=== PATIENT | male | born 1975 | race Caucasian/White ===

== ENCOUNTER 2017-02-01 19:40 | Emergency (ER) | payer OTHER ==
[~2017-02-01] VITALS: Ht 180.3 cm; Wt 97.5 kg
[~2017-02-01 19:40] MED LIST: AMBIEN 10 MG TA10 MG PO; CELEXA 10 MG TA10 M1; CIPROFLOXACIN500 M1 PO; DESYREL; DESYREL150 MG PO; DESYREL50 MG PO; DIFLUCAN150 MG PO; FLAGYL500 MG PO; FLOMAX PO; FLUCONAZOLE 10100 MG PO; FOLIC ACID1 MG PO; IBUPROFEN 600600 M1 PO; IBUPROFEN 800800 MG PO; KEFLEX500 MG PO; LEVOTHROID; LEVOTHROID175 MCG PO; LEVOTHYROXINE0.05 MG PO; NAPROSYN500 MG PO; NOHOMEMEDICATIONS; NORCO 5-325 TA1 EACH PO; NYSTATIN 1100000 U/M SW&SWALLOW; ORABASE11.9 GM MM; PERCOCET 5-3251 EACH PO; PREDNISONE50 MG PO; SYNTHROID175 MCG PO; TAMSULOSIN HCL0.4 MG PO; TIROSINT75 MCG PO; TRAZODONE 150150 M1 PO; VISTARIL 25 MG25 M1 PO; ZOFRAN4 MG PO
[2017-02-01] MEDS ORDERED: CLOTRIMAZOLE 1%15 G1 TOP (21:09)
== END 2017-02-01 21:57 | disposition home or self-care (01) ==
LOC: ER 19:40
DX: N64.4 Mastodynia (principal); N62 Hypertrophy of breast; B36.9 Superficial mycosis, unspecified; E03.9 Hypothyroidism, unspecified; F17.210 Nicotine dependence, cigarettes, uncomplicated; Z90.89 Acquired absence of other organs

== ENCOUNTER 2018-02-19 05:32 | Inpatient (IN) | payer OTHER ==
[~2018-02-19] VITALS: Ht 180.3 cm; Wt 105.2 kg
[~2018-02-19 05:32] MED LIST changes: +CLOTRIMAZOLE 1%15 G1 TOP
[2018-02-19 05:42] VITALS: BP 118/82
[2018-02-19] MEDS ORDERED: ANTIDEPRESSANT (05:46)
[2018-02-19 05:58] LABS: URINE BILIRUBIN NEGATIVE (Negative); URINE BLOOD 3+ (Negative); URINE CLARITY CLOUDY; URINE COLOR YELLOW; URINE GLUCOSE-RANDOM* NEGATIVE (Negative); URINE KETONES NEGATIVE (Negative); URINE LEUKOCYTES NEGATIVE (Negative); URINE NITRITE NEGATIVE (Negative); URINE PROTEIN (DIPSTICK) NEGATIVE (Negative); URINE SPECIFIC GRAVITY 1.025 (1.005-1.035); URINE UROBILINOGEN 0.2 E.U./dl (0.2-1.0)
[2018-02-19 06:00] LABS: ABSOLUTE NEUTROPHILS 6.3 thou/uL (1.4-8.2); BASOPHILS 0.9 % (0.0-2.0); EOSINOPHILS 3.1 % (0.0-3.0); HEMATOCRIT 45.7 % (42.0-52.0); LYMPHOCYTES 23.6 % (24.0-44.0); MCH 35.6 pg (26.0-34.0); MCV 101.6 fL (80.0-100.0); MONOCYTES 6.7 % (1.0-8.0); PLATELET COUNT 232 thou/uL (150-400); POLYS 65.7 % (36.0-66.0); RDW 12.8 % (10.5-14.5); WBC 9.5 thou/uL (4.0-11.0)
[2018-02-19 06:08] LABS: CALCIUM 8.2 mg/dL (8.5-10.1); CREATININE 1.3 mg/dL (0.7-1.3); POTASSIUM 3.6 mmol/L (3.5-5.1)
[2018-02-19 06:14] LABS: ALBUMIN 3.6 g/dL (3.4-5.0); DIRECT BILIRUBIN 0.1 mg/dL (<0.1-0.3); TOTAL BILIRUBIN 0.2 mg/dL (<0.1-1.0); TOTAL PROTEIN 6.9 g/dL (6.4-8.2)
[2018-02-19 06:16] LABS: BACTERIA 1-9 Few /HPF (None Seen); CASTS None Seen /LPF (None Seen); CRYSTALS None Seen /LPF (None Seen); MUCUS 0-3 Light strn/LPF (None Seen); SQUAMOUS None Seen /LPF (0-3); URINE RBC >20 Many /HPF (0-2); URINE WBC None Seen /HPF (0-5)
[2018-02-19 09:24] VITALS: BP 122/84
[2018-02-19 09:33] VITALS: BP 116/74
[2018-02-19 10:15] VITALS: BP 142/89
[2018-02-19 15:55] VITALS: BP 123/88
[2018-02-19 19:55] VITALS: BP 130/90
[2018-02-20 03:53] VITALS: BP 145/88
[2018-02-20 07:27] LABS: HEMATOCRIT 43.4 % (42.0-52.0); HEMOGLOBIN 14.8 gm/dL (14.0-18.0); MCH 35.1 pg (26.0-34.0); MCHC 34.2 g/dL (28.0-37.0); MCV 102.5 fL (80.0-100.0); RBC 4.23 mil/uL (4.50-6.00); RDW 12.9 % (10.5-14.5); WBC 8.4 thou/uL (4.0-11.0)
[2018-02-20 07:31] VITALS: BP 124/91
[2018-02-20 07:38] LABS: CALCIUM 7.7 mg/dL (8.5-10.1); CREATININE 1.9 mg/dL (0.7-1.3); POTASSIUM 3.8 mmol/L (3.5-5.1)
[2018-02-20] MEDS ORDERED: HYDROCODONE-AP1 EAC6 PO (08:46)
[2018-02-20] MEDS ORDERED: CEFUROXIME500 MG PO (08:46)
[2018-02-20] MEDS ORDERED: FLOMAX0.4 MG PO (08:52)
[2018-02-20 09:38] VITALS: BP 124/91
[2018-02-20 09:42] VITALS: BP 124/91
== END 2018-02-20 11:02 | disposition home or self-care (01) | DRG 693 ==
LOC: ER 05:32 → 4W 06:59 → EROBS 06:59 → 4W 09:34
PROVIDERS: Emergency Medicine; Hospitalist
DX: N20.2 Calculus of kidney with calculus of ureter (principal); N17.0 Acute kidney failure with tubular necrosis; N39.0 Urinary tract infection, site not specified; E03.9 Hypothyroidism, unspecified; B19.20 Unspecified viral hepatitis C without hepatic coma; F17.210 Nicotine dependence, cigarettes, uncomplicated; Z90.49 Acquired absence of other specified parts of digestive tract; Z79.899 Other long term (current) drug therapy
CPT/HCPCS: 10040

== ENCOUNTER 2018-04-30 10:42 | Emergency (ER) | payer OTHER ==
[~2018-04-30] VITALS: Ht 180.3 cm; Wt 104.3 kg
[~2018-04-30 10:42] MED LIST changes: +ANTIDEPRESSANT; +CEFUROXIME500 MG PO; +FLOMAX0.4 MG PO; +HYDROCODONE-AP1 EAC6 PO
[2018-04-30] MEDS ORDERED: MUPIROCIN15 GM TOP (11:13)
[2018-04-30] MEDS ORDERED: PREDNISONE 20 M20 MG PO (11:13)
== END 2018-04-30 11:18 | disposition home or self-care (01) ==
LOC: ER 10:42
DX: L29.8 Other pruritus (principal); E03.9 Hypothyroidism, unspecified; Z90.49 Acquired absence of other specified parts of digestive tract; F17.210 Nicotine dependence, cigarettes, uncomplicated

== ENCOUNTER 2019-01-01 07:11 | Emergency (ER) | payer OTHER ==
[~2019-01-01] VITALS: Ht 180.3 cm; Wt 97.5 kg
[~2019-01-01 07:11] MED LIST changes: +LOTRISONE CREAM15 GM TOP; +MUPIROCIN15 GM TOP; +PREDNISONE 20 M20 MG PO; +PROBIOTIC1 EAC1 PO; +SENNA-DOCUSATE1 EACH PO; +SYNTHROID200 MCG PO
[2019-01-01 07:12] VITALS: BP 155/108
== END 2019-01-01 07:57 | disposition left against medical advice (07) ==
LOC: ER 07:11
DX: S93.491A Sprain of other ligament of right ankle, initial encounter (principal); J06.9 Acute upper respiratory infection, unspecified; F15.10 Other stimulant abuse, uncomplicated; F17.210 Nicotine dependence, cigarettes, uncomplicated; E03.9 Hypothyroidism, unspecified; Z90.49 Acquired absence of other specified parts of digestive tract; Z87.442 Personal history of urinary calculi; X58.XXXA Exposure to other specified factors, initial encounter; Y92.89 Other specified places as the place of occurrence of the external cause; Y93.89 Activity, other specified; Y99.8 Other external cause status

== ENCOUNTER 2020-10-26 20:10 | Emergency (ER) | payer OTHER ==
[~2020-10-26] VITALS: Ht 177.8 cm; Wt 86.2 kg
[2020-10-26 20:13] VITALS: BP 133/86
== END 2020-10-26 21:46 | disposition home or self-care (01) ==
LOC: ER 20:10
DX: R05 Cough (principal); Z20.828 Contact with and (suspected) exposure to other viral communicable diseases; E03.9 Hypothyroidism, unspecified; F17.210 Nicotine dependence, cigarettes, uncomplicated; Z87.442 Personal history of urinary calculi; Z90.49 Acquired absence of other specified parts of digestive tract; Z79.899 Other long term (current) drug therapy

== ENCOUNTER → 2021-06-27 | Emergency (ER) | payer OTHER ==
[~2021-06-27] VITALS: Ht 175.3 cm; Wt 77.1 kg
[~2021-06-27] MED LIST changes: +EUTHYROX175 MCG PO
[2021-06-27 00:31] VITALS: BP 152/106
== END ==
LOC: ER 00:27
DX: F41.9 Anxiety disorder, unspecified (principal); E03.9 Hypothyroidism, unspecified; F17.210 Nicotine dependence, cigarettes, uncomplicated; F15.10 Other stimulant abuse, uncomplicated; Z90.49 Acquired absence of other specified parts of digestive tract; Z87.442 Personal history of urinary calculi; Z79.899 Other long term (current) drug therapy